=== PATIENT | female | born 1990 | race Caucasian/White ===

== ENCOUNTER 2016-12-26 09:20 | Inpatient (IN) | payer MEDICAID ==
[~2016-12-26] VITALS: Ht 170.2 cm; Wt 108.4 kg
[2016-12-26] MEDS ORDERED: LACTATED RINGERS 1,000 ML IV SCH (10:16)
[2016-12-26] MEDS ORDERED: NIFEdipine 10 MG CAPLF PO SCH ×2 (10:20→11:00)
[2016-12-26] MEDS ORDERED: BETAMETH ACET/BETAMETH NA PH 30 MG/5 ML VIAL IM SCH ×2 (10:20→22:00)
[2016-12-26] MEDS ORDERED: AMPICILLIN 2,000 MG VIAL ONE (10:38)
[2016-12-26] MEDS ORDERED: BETAMETH ACET/BETAMETH NA PH 30 MG/5 ML VIAL IM ONE ×2 (10:38→10:39)
[2016-12-26] MEDS ORDERED: NIFEdipine 10 MG CAPLF ONE ×2 (10:39→11:10)
[2016-12-26] MEDS ORDERED: PREN-546 PO (10:45)
[2016-12-26] MEDS ORDERED: AMPICILLIN 2,000 MG in NACL 0.9% 100 ML IV ONE (11:00)
[2016-12-26 11:30] LABS: BASOPHILS # (AUTO) 0.1 K/uL (0.00-0.22); EOSINOPHILS # (AUTO) 0.2 K/uL (0-0.4); EOSINOPHILS % (AUTO) 1.3 % (0.0-4.0); HEMATOCRIT 34.6 % (36-48); HEMOGLOBIN 11.7 g/dL (12.0-16.0); LYMPHOCYTES # (AUTO) 1.4 K/uL (2.5-16.5); LYMPHOCYTES % (AUTO) 11.1 % (20.5-51.1); MEAN CORPUSCULAR HEMOGLOBIN 29 pg (27-31); MEAN CORPUSCULAR HGB CONC 34 g/dL (33-37); MEAN CORPUSCULAR VOLUME 86 fL (80-94); MONOCYTES # (AUTO) 0.8 K/uL (0.8-1.0); MONOCYTES % (AUTO) 6.7 % (1.7-9.3); NEUTROPHILS % (AUTO) 79.9 % (42.2-75.2); PLATELET COUNT (AUTO) 292 K/uL (140-450); RED BLOOD CELL COUNT(AUTO) 4.03 MIL/uL (4.20-5.40); RED CELL DISTRIBUTION WIDTH 13.5 % (11.6-13.7); WHITE BLOOD COUNT (AUTO) 12.5 K/uL (4.8-10.8)
[2016-12-26 11:58] LABS: ANION GAP 12.9 (8-16); CARBON DIOXIDE 23.9 mmol/L (21-32); CREATININE 0.6 mg/dL (0.6-1.3); POTASSIUM 3.8 mmol/L (3.5-5.1)
[2016-12-26] MEDS ORDERED: AMPICILLIN 1,000 MG in NACL 0.9% 50 ML IVP SCH (12:00)
[2016-12-26] MEDS ORDERED: AMPICILLIN 1,000 MG VIAL IVP SCH (12:00)
[2016-12-26 12:03] LABS: ALBUMIN 2.4 g/dL (3.4-5.0); TOTAL BILIRUBIN 0.3 mg/dL (0.0-1.0)
[2016-12-26] MEDS ORDERED: AMPICILLIN 2,000 MG in NACL 0.9% 100 ML IV SCH (16:00)
[2016-12-26] MEDS ORDERED: ERYTHROMYCIN 250 MG in NACL 0.9% 100 ML IV SCH (18:00)
[2016-12-28 09:35] LABS: RAPID PLASMA REAGIN NON-REACTIVE (Non Reactiv)
== END 2016-12-26 18:08 | disposition short-term general hospital (02) | DRG 566 ==
LOC: MLD 09:20
PROVIDERS: ADMIT Obstetrics & Gynecology; ATTEND Obstetrics & Gynecology
DX: O30.002 Twin pregnancy, unspecified number of placenta and unspecified number of amniotic sacs, second trimester (principal); Z90.49 Acquired absence of other specified parts of digestive tract; Z3A.24 24 weeks gestation of pregnancy
CPT/HCPCS: 36415; 76805; 76810; 80053; 85025; 86592; 86709; 86762; 86886; 86900; 86901; J0290; J0702; J7120; Q0092